=== PATIENT | male | born 1965 | race American Indian/Alaskan Native ===

== ENCOUNTER 2021-04-20 18:53 | Emergency (ER) | payer MEDICARE ==
[2021-04-20 19:38] VITALS: BP 139/92
--- NOTE | 2021-04-20 19:45 | Emergency Department Report ---
Chief Complaint: Medical Clearance Stated Complaint: "why am I here?" Time Seen by Provider: 04/20/21 19:40 - HPI History of Present Illness: 56-year-old male patient presents to the emergency department via EMS for medical clearance. Patient states, "I'm here because I was dropped off here." Patient has reportedly "called 911 too many times because I want someone to talk to." When police arrived, he was reportedly given the choice between going to care home coming to the hospital. Patient elected to come to the hospital "because I don't want to go to care home" at which point the precinct police sergeant called an ambulance to transport him to the emergency department. Patient has no medical complaints. He is planning to call his father to come pick him up. - Exam Vital Signs: Vital Signs 04/20/21 19:36 Temperature 98.2 F Pulse Rate 97 H Respiratory 18 Rate Blood Pressure 139/92 [Right] O2 Sat by Pulse 96 Oximetry Physical Exam: General: Awake, appropriately interactive, no acute distress. Neck: Supple. Full range of motion intact. Cardiovascular: Normal peripheral perfusion. Pulmonary: No respiratory distress. Patient is speaking normally without use of accessory muscles. Skin: No apparent rashes or lesions. Neurological: No facial asymmetry. Speech is clear. Follows commands. Patient is alert and oriented. Musculoskeletal: Moves all four extremities spontaneously with normal range of motion. Psych: Cooperative. Appropriate mood and affect. MSE screening note: Focused history and physical exam performed. Due to findings the following was ordered: ED Medical Decision Making - Medical Decision Making Patient presents to the emergency department for medical clearance. Police gave him the option of coming to the hospital or going to care home. He is afebrile. His vital signs are stable. He appears well-hydrated, no distress, ambulatory. He has no medical complaints. He specifically denies suicidal/homicidal ideation as well as auditory/visual hallucinations. He does not appear acutely psychotic or clinically intoxicated. He is alert and oriented, capable of making his own medical decisions. There is no clinical indication for diagnostic work-up or continued ED observation at this time. Patient will return to the [facility] and call his father to pick him up and take him home. BILLING/CODING: This patient encounter does not represent a certified medical emergency. ED Disposition for MSE Clinical Impression: Encounter for medical screening examination Disposition: Z-07 MED SCREENING EXAM-LEFT Is pt being admited?: No Does the pt Need Aspirin: No Condition: Stable Instructions: Medical Screening Exam Additional Instructions: Follow-up with your primary care provider as needed. Return to the emergency department immediately for new or worsening symptoms. Referrals: [facility] [Provider Group] - 3-5 Days Time of Disposition: 19:58
== END 2021-04-20 20:10 | disposition left against medical advice (07) ==
LOC: ED 18:53
DX: M25.551 Pain in right hip (principal); Z00.00 Encounter for general adult medical examination without abnormal findings; Z53.21 Procedure and treatment not carried out due to patient leaving prior to being seen by health care provider